=== PATIENT | female | born 1955 | race Caucasian/White ===

== ENCOUNTER → 2017-12-24 | Outpatient (CLI) | payer OTHER ==
[~2017-12-24] MED LIST: ACET-2043 PO; ALBUDR INH; ALP25 PO; ALP5 PO; AMOX-556 PO; ASP81 PO; ATOR10TA65 PO; ATOR20TA65 PO; AUG500 PO; CEF300 PO; CEFU250T67 PO; CEFU500T10 PO; CELE-1 PO; CEPH250C37 PO; CIT20 PO; CITA-156 PO; CYC10 PO; CYCL10TA29 PO; DAR100 PO; ENO40I SQ; EPIN0.3P15 IM; ESOM20CA31 PO; ESOM40CA42 PO; ESTR-1 PO; ESTR-41 PO; ESTR-43 PO; HYDR-2954 PO; HYDR12.558 PO; HYDR2TAB74 PO; IPRA15SP NS; LAMO100T52 PO; LAMO100T56 PO; LEV125 PO; LEV25 PO; LEVO125T77 PO; LEVO137T23 PO; LOR5 PO; LOSA-31 PO; LOSA-32 PO; LOSA50TA67 PO; MELA10TA2 PO; METF-1 PO; METF-421 PO; METXR500 PO; MIR PO; MOM PO; MULT-1335 PO; NITR-1 PO; NITR0.4T3 SL; ONDA4TAB97 PO; PANT40TA65 PO; PARO-242 PO; PARO-243 PO; PROM-110 PO; QUET25TA PO; QUET50TA PO; RANI-366 PO; STOOL SOFTNER; TRA50 PO; TRAM-420 PO; TRAM-627 PO; [UNRECOGNIZED DRUG - CODE] PO; tylenol pm PO
--- NOTE | 2017-12-28 08:32 | RADIOLOGY IMAGING REPORT ---
FACILITY: [facility] PATIENT NAME: LOW FAROOQ : [id number] MR: [id number] V: [id number] EXAM DATE: ORDERING PHYSICIAN: VASHTI PEREIRA TECHNOLOGIST: Janeth Coker PROCEDURE:BILATERAL DIGITAL SCREENING MAMMOGRAM WITH CAD ASSISTED INTERPRETATION & 3D TOMOSYNTHESIS COMPARISON:Prior mammograms 10/29/16, 10/02/15, 08/08/14, 10/18/12, 08/24/11. INDICATIONS:SCREENING FINDINGS: Moderately heterogeneous fibroglandular tissue is seen throughout the breasts. The parenchymal pattern has remained stable allowing for difference in mammographic technique & patient positioning. There is no evidence of malignant appearing mass, malignant appearing calcifications or other secondary sign of malignancy in either breast. DIAGNOSTIC CATEGORY 1--NEGATIVE. RECOMMENDATIONS: ROUTINE MAMMOGRAM AND CLINICAL EVALUATION. IMPRESSION: BIRADS 1: Negative. No significant abnormality is seen. Dictated by: Estephania Ramsey M.D. on 12/27/2017 at 15:23 Transcribed by: PATRICIA on 12/27/2017 at 15:40 Approved by: Estephania Ramsey M.D. on 12/28/2017 at 8:32 [facility]
== END ==
LOC: MAMO 01:11
PROVIDERS: ATTEND Internal Medicine
DX: Z12.31 Encounter for screening mammogram for malignant neoplasm of breast (principal)
CPT/HCPCS: 77063; 77067

== ENCOUNTER → 2018-01-03 | Outpatient (CLI) | payer OTHER ==
[~2018-01-03] MED LIST changes: +CHOL200074 PO; +DIPH0.5D12 IM; +NITR-105 PO
[2018-01-03 10:54] LABS: PLATELET COUNT, AUTOMATED 280 K/uL (150-450)
[2018-01-03 11:04] LABS: LDL CHOLESTEROL 52 mg/dl
== END ==
LOC: LAB 10:07
PROVIDERS: ATTEND Internal Medicine
DX: Z11.59 Encounter for screening for other viral diseases (principal); N39.0 Urinary tract infection, site not specified; E03.9 Hypothyroidism, unspecified; I10 Essential (primary) hypertension; E78.00 Pure hypercholesterolemia, unspecified; E11.9 Type 2 diabetes mellitus without complications; F43.10 Post-traumatic stress disorder, unspecified; F31.9 Bipolar disorder, unspecified; B96.89 Other specified bacterial agents as the cause of diseases classified elsewhere
CPT/HCPCS: 36415; 81001; 82040; 82043; 82247; 82306; 82310; 82374; 82435; 82465; 82565; 82947; 83036; 83718; 84075; 84132; 84155; 84295; 84443; 84450; 84460; 84478; 84520; 85025; 86803; 87077; 87088; 87186

== ENCOUNTER → 2018-03-02 | Outpatient (REF) | payer OTHER | LOC: ZZSENDIN 17:18 | PROVIDERS: ATTEND Urology | DX: N39.0 Urinary tract infection, site not specified (principal) | CPT/HCPCS: 87088 ==

== ENCOUNTER 2018-06-02 23:24 | Emergency (ER) | payer OTHER ==
[~2018-06-02 23:24] MED LIST changes: -METF-421 PO; +METF-452 PO
--- NOTE | 2018-06-02 23:29 | ER Report ---
History and Physical Time Seen By MD: 23:29 HPI/ROS CHIEF COMPLAINT: Hematuria HISTORY OF PRESENT ILLNESS: 63-year-old female presents with blood in her urine tonight. Patient status post hysterectomy. She denies vaginal bleeding. Patient just finished a course of Macrobid for urinary tract infection. She's been having a series of recurrent urinary tract infections. She is being followed by Dr. Porter urology. She notes burning with urination. She she notes pain radiating to her bilateral flanks. REVIEW OF SYSTEMS: Respiratory: No cough, no dyspnea. Cardiovascular: No chest pain, no palpitations. Gastrointestinal: As above Musculoskeletal: As above Allergies: Coded Allergies: adhesive tape (Verified Allergy, Intermediate, 09/26/16) tomato (Verified Allergy, Intermediate, 09/26/16) Sulfa (Sulfonamide Antibiotics) (Verified Allergy, Mild, HIVES, 09/26/16) ciprofloxacin (Verified Allergy, Mild, HIVES, 09/26/16) codeine (Verified Allergy, Mild, HIVES, 09/26/16) hydrocodone (Verified Allergy, Mild, 09/26/16) ciprofloxacin HCl (Verified Allergy, Unknown, 09/26/16) Uncoded Allergies: MSG (Allergy, Severe, 01/13/17) SULFA (Allergy, Unknown, GASTRIC BLEEDING, 07/03/14) NARCOTICS (Adverse Reaction, Unknown, 07/03/14) constipation Home Meds Active Scripts Cefuroxime Axetil (CEFUROXIME) 500 Mg Tablet, 500 MG PO BID for infection, #14 TAB Prov:HAYDE CASEY DO 06/03/18 Tramadol Hcl (TRAMADOL HCL) 50 Mg Tablet, 50 MG PO Q4-6H for pain, #90 TAB 1 Refill Prov:VASHTI PEREIRA MD 01/10/18 Lamotrigine (LAMOTRIGINE) 100 Mg Tablet, 2 TAB PO DAILY, #180 TAB 1 Refill Prov:VASHTI PEREIRA MD 01/07/18 Atorvastatin Calcium (ATORVASTATIN CALCIUM) 20 Mg Tablet, 1 TAB PO QDAY, #90 TAB 1 Refill Prov:VASHTI PEREIRA MD 01/07/18 Quetiapine Fumarate (QUETIAPINE FUMARATE) 50 Mg Tablet, 50 MG PO QHS, #90 TAB 1 Refill Prov:VASHTI PEREIRA MD 01/07/18 Metformin Hcl (METFORMIN HCL) 1,000 Mg Tablet, 1 TAB PO BID, #180 TAB 1 Refill Prov:VASHTI PEREIRA MD 01/07/18 Levothyroxine Sodium (LEVOTHYROXINE SODIUM) 0.125 Mg Tab, 0.125 MG PO QDAY, #90 TAB 1 Refill Prov:VASHTI PEREIRA MD 01/07/18 Pantoprazole Sodium (PANTOPRAZOLE SODIUM) 40 Mg Tablet.dr, 1 TAB PO QDAY, #90 TAB.SR 1 Refill Prov:VASHTI PEREIRA MD 01/07/18 Losartan/Hydrochlorothiazide (HYZAAR 50-12.5 TABLET) 1 Each Tablet, 1 EACH PO QDAY, #90 TAB 1 Refill Prov:VASHTI PEREIRA MD 01/07/18 Paroxetine Hcl (PAXIL) 20 Mg Tablet, 2 TAB PO QDAY, #180 TAB 1 Refill Prov:VASHTI PEREIRA MD 01/07/18 Ranitidine Hcl (ZANTAC) 150 Mg Tablet, 150 MG PO DAILY, #90 TAB 1 Refill Prov:VASHTI PEREIRA MD 01/07/18 Cyclobenzaprine Hcl (CYCLOBENZAPRINE HCL) 10 Mg Tablet, 10 MG PO TID PRN for pain, #90 TAB 1 Refill Prov:VASHTI PEREIRA MD 01/07/18 Epinephrine (EPIPEN 2-MARÍA ELENA) 0.3 Mg/0.3 Ml Pen.injctr, 0.3 MG IM DIRECTED, #1 SYR Prov:VASHTI PEREIRA MD 01/13/17 Reported Medications Cholecalciferol (Vitamin D3) (VITAMIN D-3) 2,000 Unit Capsule, 2000 UNIT PO QDAY, CAPSULE 01/04/18 Melatonin (MELATONIN) 10 Mg Tablet, 10 MG PO HS PRN for SLEEP 10/15/13 Aspirin (Childrens Chewable Aspirin) 81 Mg Chew, 81 MG PO QDAY, 0 Refills 01/13/11 Discontinued Scripts Nitrofurantoin Monohyd/M-Cryst (MACROBID 100 MG CAPSULE) 100 Mg Capsule, 100 MG PO Q12H, #14 CAPSULE Prov:VASHTI PEREIRA MD 01/05/18 Estrogen,Willow/Me-Testosterone (EEMT HS 0.625-1.25 MG TABLET) 1 Each Tablet, 1 EACH PO QDAY, #90 TAB Prov:VASHTI PEREIRA MD 11/16/17 Past Medical/Surgical History Past medical history significant for NIDDM and is currently on metformin 1000 mg twice a day. Last hemoglobin A1c was done in January/2017 and it was 7.5H and denies any numbness of the lower extremities but does complain of numbness in her toes in the right foot which has been present since she has an injury to the foot. Past medical history significant for hypertension and is currently on losartan/hydrochlorothiazide 50/12.5 one every day blood pressure appears to be under good control Past medical history significant for hyperlipidemia and is currently on atorvastatin 20 mg daily Past medical history significant for hypothyroidism she is status post partial thyroidectomy and recent labs have shown TSH of 2.13 Past medical history significant for bipolar disorder/post traumatic stress disorder and is currently on lamotrigine Seroquel and Paxil she denies any depression or anxiety or manic episodes her symptoms are fairly stable at this time Past medical history significant for GERD and is currently using Nexium in the morning and Zantac at night Hx Smoking: No Smoking Status: Never Smoker Hx Substance Use Disorder: No Hx Alcohol Use: Yes Constitutional Vital Sign - Last 24 Hours 06/02/18 06/02/18 06/02/18 06/02/18 23:24 23:33 23:33 23:39 Temp 97.9 Pulse ??? 116 104 Resp 18 B/P (MAP) 154/82 (106) 154/82 Pulse Ox 93 93 O2 Delivery Room Air 06/02/18 06/03/18 06/03/18 06/03/18 23:54 00:00 00:09 00:24 Pulse 100 98 ??? B/P (MAP) 130/76 (94) Pulse Ox 89 92 90 06/03/18 06/03/18 00:30 00:36 Pulse ??? B/P (MAP) 110/70 (83) Physical Exam General Appearance: The patient is alert, has no immediate need for airway protection and no current signs of toxicity. Vital signs stable, afebrile, pulse ox normal Eyes: Pupils equal and round no injection. Respiratory: Chest is non tender, lungs are clear to auscultation. Cardiac: regular rate and rhythm Gastrointestinal: Abdomen is soft and non tender, no masses, bowel sounds normal. Mild CVA tenderness bilaterally Musculoskeletal: Neck: Neck is supple and non tender. Extremities have full range of motion and are non tender. Skin: No rashes or lesions. DIFFERENTIAL DIAGNOSIS: After history and physical exam differential diagnosis was considered for back pain including but not limited to muscular pain, herniated disc, spine fracture, intra-abdominal causes and urinary tract infection. Additionally,abdominal pain including but not limited to appendicitis, cholecystitis, gastritis and urinary tract infection. Medical Decision Making Data Points Laboratory Hematology Test 06/02/18 23:30 Urine Color Yellow Urine Clarity Turbid Urine pH 5.0 pH (4.8-9.5) Urine Specific [place] 1.014 Urine Protein 100 mg/dL (NEGATIVE) Urine Glucose (UA) Negative mg/dL (NEGATIVE) Urine Ketones Negative mg/dL (NEGATIVE) Urine Blood Large (NEGATIVE) Urine Nitrite Positive (NEGATIVE) Urine Bilirubin Negative (NEGATIVE) Urine Urobilinogen Negative mg/dL (0.2-1.9) Urine Leukocyte Esterase Moderate (NEGATIVE) Urine RBC 211 /HPF (0-2/HPF) Urine WBC 3223 /HPF (0-5/HPF) Urine WBC Clumps Many /HPF Urine Squamous Epithelial Cells Many /LPF (</=FEW) Urine Transitional Epithelial Cells Moderate /LPF (NONE-FEW) Urine Bacteria Few /HPF (NONE-FEW) Urine Mucus None /HPF (NONE-FEW) Chemistry Test 06/02/18 23:30 Urine Color Yellow Urine Clarity Turbid Urine pH 5.0 pH (4.8-9.5) Urine Specific [place] 1.014 Urine Protein 100 mg/dL (NEGATIVE) Urine Glucose (UA) Negative mg/dL (NEGATIVE) Urine Ketones Negative mg/dL (NEGATIVE) Urine Blood Large (NEGATIVE) Urine Nitrite Positive (NEGATIVE) Urine Bilirubin Negative (NEGATIVE) Urine Urobilinogen Negative mg/dL (0.2-1.9) Urine Leukocyte Esterase Moderate (NEGATIVE) Urine RBC 211 /HPF (0-2/HPF) Urine WBC 3223 /HPF (0-5/HPF) Urine WBC Clumps Many /HPF Urine Squamous Epithelial Cells Many /LPF (</=FEW) Urine Transitional Epithelial Cells Moderate /LPF (NONE-FEW) Urine Bacteria Few /HPF (NONE-FEW) Urine Mucus None /HPF (NONE-FEW) Urinalysis Test 06/02/18 23:30 Urine Color Yellow Urine Clarity Turbid Urine pH 5.0 pH (4.8-9.5) Urine Specific [place] 1.014 Urine Protein 100 mg/dL (NEGATIVE) Urine Glucose (UA) Negative mg/dL (NEGATIVE) Urine Ketones Negative mg/dL (NEGATIVE) Urine Blood Large (NEGATIVE) Urine Nitrite Positive (NEGATIVE) Urine Bilirubin Negative (NEGATIVE) Urine Urobilinogen Negative mg/dL (0.2-1.9) Urine Leukocyte Esterase Moderate (NEGATIVE) Urine RBC 211 /HPF (0-2/HPF) Urine WBC 3223 /HPF (0-5/HPF) Urine WBC Clumps Many /HPF Urine Squamous Epithelial Cells Many /LPF (</=FEW) Urine Transitional Epithelial Cells Moderate /LPF (NONE-FEW) Urine Bacteria Few /HPF (NONE-FEW) Urine Mucus None /HPF (NONE-FEW) ED Course/Re-evaluation ED Course Patient was admitted to an examination room. H&P was done. The differential diagnosis was considered. On clinical examination. Patient has mild suprapubic tenderness. She has bilateral flank tenderness. Urinalysis shows gross infection. Suspect she failed Macrobid as outpatient treatment. A urinary cultures ordered. Patient be treated with cefuroxime 500 mg by mouth twice a day. Patient's advised to follow-up with Dr. Porter in for recheck of culture results in 2-3 days. Decision to Disposition Date: Jun 03, 2018 Decision to Disposition Time: 00:11 Depart Departure Latest Vital Signs Vital Signs Date Time Temp Pulse Resp B/P (MAP) Pulse Ox O2 Delivery O2 Flow Rate FiO2 06/03/18 00:36 ??? 06/03/18 00:30 110/70 (83) 06/03/18 00:24 90 06/02/18 23:33 97.9 18 Room Air Impression: Primary Impression: UTI (urinary tract infection) Condition: Improved Disposition: HOME OR SELF-CARE Referrals: VASHTI PEREIRA MD (PCP) RAMÓN PORTER MD New Scripts Cefuroxime Axetil (CEFUROXIME) 500 Mg Tablet 500 MG PO BID for infection, #14 TAB Prov: HAYDE CASEY 06/03/18 Patient Instructions: Urinary Tract Infection in Women (ED) Additional Instructions: Drink plenty of fluids Take Azo-Standard Follow-up with Dr. Porter as soon as possible Problem Qualifiers Primary Impression: UTI (urinary tract infection) Urinary tract infection type: acute cystitis Hematuria presence: with hematuria Qualified Codes: N30.01 - Acute cystitis with hematuria HAYDE CASEY DO Jun 02, 2018 23:29
[2018-06-03] MEDS ORDERED: CEFUROXIME AXETIL 250 MG TAB PO ONE (00:10)
[2018-06-03] MEDS ORDERED: HYDROmorphone 2 MG TAB TH 2 TAB/BOTTLE PO ONE (00:15)
[2018-06-03] MEDS ORDERED: CEFU500T10 PO (00:16)
[2018-06-03 00:30] VITALS: BP 110/70
== END 2018-06-03 00:34 | disposition home or self-care (01) ==
LOC: ER 23:59
DX: N30.01 Acute cystitis with hematuria (principal)
CPT/HCPCS: 81001; 87077; 87088; 87186; 99283; A9270

== ENCOUNTER 2018-06-04 09:54 | Emergency (ER) | payer MEDICARE, OTHER ==
[2018-06-04 10:08] VITALS: BP 134/75
[2018-06-04 10:33] LABS: PLATELET COUNT, AUTOMATED 337 K/uL (150-450)
--- NOTE | 2018-06-04 11:19 | ER Report ---
History and Physical Time Seen By MD: 10:45 Hx. of Stated Complaint: c/o vaginal bleeding and blood in urine increasing since with bilateral low back pain. HPI/ROS CHIEF COMPLAINT: vaginal bleeding HISTORY OF PRESENT ILLNESS: 63-year-old female is presenting with vaginal bleeding. She is status post hysterectomy 20 years ago. She was recently treated for UTI 2 days ago. She states that since this time she has had vaginal bleeding. Bleeding began yesterday and was slight use, now with slight increase in the amount of bleeding this morning. She denies cramping but does note that she has had lower abdominal pain and bilateral lower back pain since she was diagnosed with UTI. She denies new lightheadedness though states she has been intermittently lightheaded for months. She denies fever or chills, chest pain or shortness breath. She is had no recent significant weight change, no night sweats. REVIEW OF SYSTEMS: Constitutional: No fever, no chills. Eyes: No discharge. ENT: No sore throat. Cardiovascular: No chest pain, no palpitations. Respiratory: No cough, no shortness of breath. Gastrointestinal: above Genitourinary: vaginal bleeding as above Musculoskeletal: as above Skin: No rashes. Neurological: No headache. Remainder of the 14 system rev: Yes Allergies: Coded Allergies: adhesive tape (Verified Allergy, Intermediate, 09/26/16) tomato (Verified Allergy, Intermediate, 09/26/16) Sulfa (Sulfonamide Antibiotics) (Verified Allergy, Mild, HIVES, 09/26/16) ciprofloxacin (Verified Allergy, Mild, HIVES, 09/26/16) codeine (Verified Allergy, Mild, HIVES, 09/26/16) hydrocodone (Verified Allergy, Mild, 09/26/16) ciprofloxacin HCl (Verified Allergy, Unknown, 09/26/16) Uncoded Allergies: MSG (Allergy, Severe, 01/13/17) SULFA (Allergy, Unknown, GASTRIC BLEEDING, 07/03/14) NARCOTICS (Adverse Reaction, Unknown, 07/03/14) constipation Home Meds Active Scripts Cefuroxime Axetil (CEFUROXIME) 500 Mg Tablet, 500 MG PO BID for infection, #14 TAB Prov:HAYDE CASEY DO 06/03/18 Tramadol Hcl (TRAMADOL HCL) 50 Mg Tablet, 50 MG PO Q4-6H for pain, #90 TAB 1 Refill Prov:VASHTI PEREIRA MD 01/10/18 Lamotrigine (LAMOTRIGINE) 100 Mg Tablet, 2 TAB PO DAILY, #180 TAB 1 Refill Prov:VASHTI PEREIRA MD 01/07/18 Atorvastatin Calcium (ATORVASTATIN CALCIUM) 20 Mg Tablet, 1 TAB PO QDAY, #90 TAB 1 Refill Prov:VASHTI PEREIRA MD 01/07/18 Quetiapine Fumarate (QUETIAPINE FUMARATE) 50 Mg Tablet, 50 MG PO QHS, #90 TAB 1 Refill Prov:VASHTI PEREIRA MD 01/07/18 Metformin Hcl (METFORMIN HCL) 1,000 Mg Tablet, 1 TAB PO BID, #180 TAB 1 Refill Prov:VASHTI PEREIRA MD 01/07/18 Levothyroxine Sodium (LEVOTHYROXINE SODIUM) 0.125 Mg Tab, 0.125 MG PO QDAY, #90 TAB 1 Refill Prov:VASHTI PEREIRA MD 01/07/18 Pantoprazole Sodium (PANTOPRAZOLE SODIUM) 40 Mg Tablet.dr, 1 TAB PO QDAY, #90 TAB.SR 1 Refill Prov:VASHTI PEREIRA MD 01/07/18 Losartan/Hydrochlorothiazide (HYZAAR 50-12.5 TABLET) 1 Each Tablet, 1 EACH PO QDAY, #90 TAB 1 Refill Prov:VASHTI PEREIRA MD 01/07/18 Paroxetine Hcl (PAXIL) 20 Mg Tablet, 2 TAB PO QDAY, #180 TAB 1 Refill Prov:VASHTI PEREIRA MD 01/07/18 Ranitidine Hcl (ZANTAC) 150 Mg Tablet, 150 MG PO DAILY, #90 TAB 1 Refill Prov:VASHTI PEREIRA MD 01/07/18 Cyclobenzaprine Hcl (CYCLOBENZAPRINE HCL) 10 Mg Tablet, 10 MG PO TID PRN for pain, #90 TAB 1 Refill Prov:VASHTI PEREIRA MD 01/07/18 Epinephrine (EPIPEN 2-MARÍA ELENA) 0.3 Mg/0.3 Ml Pen.injctr, 0.3 MG IM DIRECTED, #1 SYR Prov:VASHTI PEREIRA MD 01/13/17 Reported Medications Cholecalciferol (Vitamin D3) (VITAMIN D-3) 2,000 Unit Capsule, 2000 UNIT PO QDAY, CAPSULE 01/04/18 Melatonin (MELATONIN) 10 Mg Tablet, 10 MG PO HS PRN for SLEEP 10/15/13 Aspirin (Childrens Chewable Aspirin) 81 Mg Chew, 81 MG PO QDAY, 0 Refills 01/13/11 Discontinued Scripts Nitrofurantoin Monohyd/M-Cryst (MACROBID 100 MG CAPSULE) 100 Mg Capsule, 100 MG PO Q12H, #14 CAPSULE Prov:VASHTI PEREIRA MD 01/05/18 Estrogen,Willow/Me-Testosterone (EEMT HS 0.625-1.25 MG TABLET) 1 Each Tablet, 1 EACH PO QDAY, #90 TAB Prov:VASHTI PEREIRA MD 11/16/17 Reviewed Nurses Notes: Yes Hx Smoking: No Smoking Status: Never Smoker Hx Substance Use Disorder: No Hx Alcohol Use: Yes (SELDOM) Constitutional Vital Sign - Last 24 Hours 06/04/18 06/04/18 06/04/18 06/04/18 09:54 10:05 10:08 10:09 Temp 97.9 Pulse ??? 100 103 Resp 16 B/P (MAP) 134/75 134/75 (94) Pulse Ox 93 91 O2 Delivery Room Air 06/04/18 06/04/18 06/04/18 06/04/18 10:24 10:39 10:54 11:09 Pulse 91 88 90 93 Pulse Ox 91 91 92 90 Physical Exam General Appearance: The patient is alert, has no immediate need for airway protection and no signs of toxicity. [ ] Eyes: Pupils equal and round no pallor or injection. ENT, Mouth: Mucous membranes are moist. Respiratory: There are no retractions, lungs are clear to auscultation. Cardiovascular: RRR, no m/r/g Gastrointestinal: pt has bilateral lower quadrant ttp, with suprapubic ttp and possible small mass - vaginal cuff noted to have blood present without e/o active bleeding Neurological: alert oriented, nad Skin: Warm and dry, no rashes. Musculoskeletal: Extremities are nontender, nonswollen and have full range of motion. DIFFERENTIAL DIAGNOSIS: After history and physical exam differential diagnosis was considered for abdominal pain including but not limited to appendicitis, cholecystitis, gastritis and urinary tract infection, diverticulitis, pyelonephritis, aaa, malignanc Medical Decision Making Data Points Result Diagram: 06/04/18 1015 06/04/18 1015 Laboratory Hematology Test 06/04/18 10:00 06/04/18 10:15 Urine Color Yellow Urine Clarity Slightly-cloudy Urine pH 5.0 pH (4.8-9.5) Urine Specific [place] 1.016 Urine Protein 30 mg/dL (NEGATIVE) Urine Glucose (UA) Negative mg/dL (NEGATIVE) Urine Ketones Negative mg/dL (NEGATIVE) Urine Blood Large (NEGATIVE) Urine Nitrite Negative (NEGATIVE) Urine Bilirubin Negative (NEGATIVE) Urine Urobilinogen Negative mg/dL (0.2-1.9) Urine Leukocyte Esterase Small (NEGATIVE) Urine RBC 336 /HPF (0-2/HPF) Urine WBC 115 /HPF (0-5/HPF) Urine Squamous Epithelial Cells Many /LPF (</=FEW) Urine Bacteria Negative /HPF (NONE-FEW) Urine Mucus Few /HPF (NONE-FEW) Red Blood Count 5.36 M/uL (4.17-5.56) Mean Corpuscular Volume 86.2 fL (80.0-96.0) Mean Corpuscular Hemoglobin 28.8 pg (26.0-33.0) Mean Corpuscular Hemoglobin Concent 33.4 g/dL (32.0-36.0) Red Cell Distribution Width 14.1 % (11.5-14.5) Mean Platelet Volume 6.8 fL (7.2-11.1) Neutrophils (%) (Auto) 68.9 % (39.4-72.5) Lymphocytes (%) (Auto) 16.4 % (17.6-49.6) Monocytes (%) (Auto) 6.6 % (4.1-12.4) Eosinophils (%) (Auto) 7.1 % (0.4-6.7) Basophils (%) (Auto) 1.0 % (0.3-1.4) Nucleated RBC Relative Count (auto) 0.0 /100WBC Neutrophils # (Auto) 6.3 K/uL (2.0-7.4) Lymphocytes # (Auto) 1.5 K/uL (1.3-3.6) Monocytes # (Auto) 0.6 K/uL (0.3-1.0) Eosinophils # (Auto) 0.7 K/uL (0.0-0.5) Basophils # (Auto) 0.1 K/uL (0.0-0.1) Nucleated RBC Absolute Count (auto) 0.00 K/uL Sodium Level 140 mmol/L (137-145) Potassium Level 4.1 mmol/L (3.5-5.0) Chloride Level 101 mmol/L (98-107) Carbon Dioxide Level 27 mmol/L (22-31) Blood Urea Nitrogen 20 mg/dl (7-18) Creatinine 1.00 mg/dl (0.52-1.04) Glomerular Filtration Rate Calc 55.6 Random Glucose 162 mg/dl (75-110) Calcium Level 10.0 mg/dl (8.4-10.2) Total Bilirubin 0.7 mg/dl (0.2-1.3) Aspartate Amino Transf (AST/SGOT) 24 U/L (0-35) Alanine Aminotransferase (ALT/SGPT) 29 U/L (0-56) Alkaline Phosphatase 85 U/L (0-126) Total Protein 7.5 g/dl (6.3-8.2) Albumin 4.5 g/dl (3.5-5.0) Chemistry Test 06/04/18 10:00 06/04/18 10:15 Urine Color Yellow Urine Clarity Slightly-cloudy Urine pH 5.0 pH (4.8-9.5) Urine Specific [place] 1.016 Urine Protein 30 mg/dL (NEGATIVE) Urine Glucose (UA) Negative mg/dL (NEGATIVE) Urine Ketones Negative mg/dL (NEGATIVE) Urine Blood Large (NEGATIVE) Urine Nitrite Negative (NEGATIVE) Urine Bilirubin Negative (NEGATIVE) Urine Urobilinogen Negative mg/dL (0.2-1.9) Urine Leukocyte Esterase Small (NEGATIVE) Urine RBC 336 /HPF (0-2/HPF) Urine WBC 115 /HPF (0-5/HPF) Urine Squamous Epithelial Cells Many /LPF (</=FEW) Urine Bacteria Negative /HPF (NONE-FEW) Urine Mucus Few /HPF (NONE-FEW) White Blood Count 9.2 k/uL (4.5-11.0) Red Blood Count 5.36 M/uL (4.17-5.56) Hemoglobin 15.4 g/dL (12.0-16.0) Hematocrit 46.2 % (34.0-47.0) Mean Corpuscular Volume 86.2 fL (80.0-96.0) Mean Corpuscular Hemoglobin 28.8 pg (26.0-33.0) Mean Corpuscular Hemoglobin Concent 33.4 g/dL (32.0-36.0) Red Cell Distribution Width 14.1 % (11.5-14.5) Platelet Count 337 K/uL (150-450) Mean Platelet Volume 6.8 fL (7.2-11.1) Neutrophils (%) (Auto) 68.9 % (39.4-72.5) Lymphocytes (%) (Auto) 16.4 % (17.6-49.6) Monocytes (%) (Auto) 6.6 % (4.1-12.4) Eosinophils (%) (Auto) 7.1 % (0.4-6.7) Basophils (%) (Auto) 1.0 % (0.3-1.4) Nucleated RBC Relative Count (auto) 0.0 /100WBC Neutrophils # (Auto) 6.3 K/uL (2.0-7.4) Lymphocytes # (Auto) 1.5 K/uL (1.3-3.6) Monocytes # (Auto) 0.6 K/uL (0.3-1.0) Eosinophils # (Auto) 0.7 K/uL (0.0-0.5) Basophils # (Auto) 0.1 K/uL (0.0-0.1) Nucleated RBC Absolute Count (auto) 0.00 K/uL Glomerular Filtration Rate Calc 55.6 Calcium Level 10.0 mg/dl (8.4-10.2) Total Bilirubin 0.7 mg/dl (0.2-1.3) Aspartate Amino Transf (AST/SGOT) 24 U/L (0-35) Alanine Aminotransferase (ALT/SGPT) 29 U/L (0-56) Alkaline Phosphatase 85 U/L (0-126) Total Protein 7.5 g/dl (6.3-8.2) Albumin 4.5 g/dl (3.5-5.0) Urinalysis Test 06/04/18 10:00 Urine Color Yellow Urine Clarity Slightly-cloudy Urine pH 5.0 pH (4.8-9.5) Urine Specific [place] 1.016 Urine Protein 30 mg/dL (NEGATIVE) Urine Glucose (UA) Negative mg/dL (NEGATIVE) Urine Ketones Negative mg/dL (NEGATIVE) Urine Blood Large (NEGATIVE) Urine Nitrite Negative (NEGATIVE) Urine Bilirubin Negative (NEGATIVE) Urine Urobilinogen Negative mg/dL (0.2-1.9) Urine Leukocyte Esterase Small (NEGATIVE) Urine RBC 336 /HPF (0-2/HPF) Urine WBC 115 /HPF (0-5/HPF) Urine Squamous Epithelial Cells Many /LPF (</=FEW) Urine Bacteria Negative /HPF (NONE-FEW) Urine Mucus Few /HPF (NONE-FEW) ED Course/Re-evaluation ED Course Pt remains hd stable; CT shows cystitis without other acute findings. I suspect that as bladder is adjacent to vagina, due to inflammation present on CT, bleeding is secondary to this. However, pt understands need to f/u, return to urologist and referral to electric deicer inspector for further eval. No e/o sepsis or worsening infection. Decision to Disposition Date: Jun 04, 2018 Decision to Disposition Time: 12:32 Depart Departure Latest Vital Signs Vital Signs Date Time Temp Pulse Resp B/P (MAP) Pulse Ox O2 Delivery O2 Flow Rate FiO2 06/04/18 11:09 93 90 06/04/18 10:08 134/75 (94) 06/04/18 10:05 97.9 16 Room Air Impression: Primary Impression: Vaginal bleeding Condition: Improved Disposition: HOME OR SELF-CARE Referrals: VASHTI PEREIRA MD (PCP) Additional Instructions: As we discussed, at this point I think the bleeding into the vagina is because of the inflammation from the bladder infection. However, it is important you follow up and have your primary doctor refer you to a electric deicer inspector for reevaluation. I also recommend you return to your urologist is currently scheduled. Given that your bladder scope was normal previously, I suspect that due to the adjacent vagina, your repeat infections are related to this. There are electric deicer inspector can reevaluate and determine if there is a surgical option. Please return immediately for worsening symptoms, fevers, vomiting, lightheadedness, not tolerate fluids or other concerns. ANASTACIO SHEIKH MD Jun 04, 2018 11:19
[2018-06-04] MEDS ORDERED: IOPAMIDOL 76% 75 ML INFUS BTL 75 ML ONE (11:32)
[2018-06-04] MEDS ORDERED: MORPHINE 4 MG/ML SDV IVP ONE (12:05)
--- NOTE | 2018-06-04 12:13 | RADIOLOGY IMAGING REPORT ---
FACILITY: [facility] PATIENT NAME: Inna Villarreal : 1955 MR: [id number] V: [id number] EXAM DATE: ORDERING PHYSICIAN: ANASTACIO SHEIKH TECHNOLOGIST: Location: [facility] [place] Patient: Inna Villarreal : 1955 Visit/Account:[id number] Date of Sevice: 06/04/2018 ABDOMEN/PELVIS WITH CONTRAST HISTORY: lower abdominal ttp, L>R TECHNIQUE: Following administration of IV contrast contiguous axial images acquired through the abdom en/pelvis. Coronal and sagittal reformatting also performed. One of the following dose optimization techniques was utilized in the performance of this exam: Automated exposure control; adjustment of t he mA and/or kV according to the patient's size; or use of an iterative reconstruction technique. S pecific details can be referenced in the facility's radiology CT exam operational policy. CONTRAST: 75 mL [id number] COMPARISON: CT abdomen pelvis 09/26/2016 FINDINGS: Visualized lung bases: Negative. Hepatobiliary: Negative. Spleen: Negative. Adrenals: Negative. Pancreas: Negative. Kidneys ureters or bladder: There are several small bilateral renal cysts, the largest located in the right anterior renal cortex measuring 1.7 cm in diameter, unchanged. A subcentimeter cyst in left re nal cortex slightly increased in size. Again seen is subtle mucosal enhancement of the bladder wall which is best appreciated on the coronal images. This again is suspicious for cystitis. No intraluminal masses. Genitalia: Remote hysterectomy. GI: Several sigmoid diverticula are seen. No evidence of inflammation. The appendix is retrocecal, w ell visualized, and normal. Vessels/spaces/nodes: There are several small aneurysms which are unchanged. There is a 2 cm rim kaitlynn cified splenic artery aneurysm as well as a 1 cm partially calcified right renal arcuate artery aneur ysm and a partially calcified 1 cm left renal arcuate artery aneurysm. Bones/soft tissues: Negative. Additional findings: None pertinent. IMPRESSION: Findings suspicious for cystitis. No other acute pathology. Mild sigmoid diverticulosis. 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 Additional benign findings per above. Report Dictated By: José Miguel Dan MD at 06/04/2018 11:58 AM Report E-Signed By: José Miguel Dan MD at 06/04/2018 12:09 PM WSN:[id number]
== END 2018-06-04 13:08 | disposition home or self-care (01) ==
LOC: ER 10:43
DX: N93.9 Abnormal uterine and vaginal bleeding, unspecified (principal)
CPT/HCPCS: 74177; 81001; 85025; 96374; 99284; J2270; Q9967; 82040; 82247; 82310; 82374; 82435; 82565; 82947; 84075; 84132; 84155; 84295; 84450; 84460; 84520

== ENCOUNTER → 2018-06-07 | Outpatient (CLI) | payer MEDICARE, OTHER ==
[~2018-06-07] MED LIST changes: +ESTR0.5T16 PO; +PHEN200T32 PO
== END ==
LOC: LAB 16:04
PROVIDERS: ATTEND Internal Medicine
DX: N39.0 Urinary tract infection, site not specified (principal)
CPT/HCPCS: 81001; 87088

== ENCOUNTER → 2018-08-30 | Outpatient (CLI) | payer MEDICARE, OTHER ==
[~2018-08-30] MED LIST changes: +CEPH500T7 PO; +ESTR42.53 TOP; +MECL25TA27 PO
[2018-08-30 16:36] LABS: PLATELET COUNT, AUTOMATED 332 K/uL (150-450)
[2018-08-30 17:43] LABS: LDL CHOLESTEROL 42 mg/dl
== END ==
LOC: LAB 15:59
PROVIDERS: ATTEND Internal Medicine
DX: E78.00 Pure hypercholesterolemia, unspecified (principal); E11.9 Type 2 diabetes mellitus without complications; E03.9 Hypothyroidism, unspecified; I10 Essential (primary) hypertension; R42 Dizziness and giddiness; N39.0 Urinary tract infection, site not specified; B96.89 Other specified bacterial agents as the cause of diseases classified elsewhere
CPT/HCPCS: 36415; 81001; 82040; 82247; 82306; 82310; 82374; 82435; 82465; 82565; 82947; 83036; 83718; 84075; 84132; 84155; 84295; 84439; 84443; 84450; 84460; 84478; 84520; 84550; 85025; 87077; 87088; 87186

== ENCOUNTER 2018-09-04 16:02 | Emergency (ER) | payer MEDICARE, OTHER ==
--- NOTE | 2018-09-04 16:51 | RADIOLOGY IMAGING REPORT ---
FACILITY: [facility] PATIENT NAME: Inna Villarreal : 1955 MR: [id number] V: [id number] EXAM DATE: ORDERING PHYSICIAN: LEE ANGEL TECHNOLOGIST: Location: [facility] Patient: Inna Villarreal : 1955 Visit/Account:[id number] Date of Sevice: 09/04/2018 ANKLE 3 VIEW MIN LEFT HISTORY: FALL ON ICE THREE-VIEW EXAMINATION OF THE LEFT ANKLE. FINDINGS: The distal tibia and fibular well-maintained with no fractures. Ankle mortise intact. Talar dome with out osteochondral defect. Talus, calcaneus and mid foot structures well-maintained. Plantar spurring and enthesopathy changes noted from the posterior calcaneus. No joint effusion. IMPRESSION: 1 negative left ankle for acute bony pathology Report Dictated By: Jarret Munoz MD at 09/04/2018 4:45 PM Report E-Signed By: Jarret Munoz MD at 09/04/2018 4:47 PM WSN:[id number]
--- NOTE | 2018-09-04 17:05 | ER Report ---
History and Physical Time Seen By MD: 17:05 Hx. of Stated Complaint: FALL ON ICE - LEFT FOOT AND ANKLE PAIN HPI/ROS CHIEF COMPLAINT: Left ankle injury HISTORY OF PRESENT ILLNESS: This is a 63-year-old female who presents to the emergency department for a left ankle injury. Patient states that about 2 hours prior to arrival, she slipped on some ice and her left foot rolled inward causing severe pain to the medial malleolus and arch of the foot. Patient states she is unable to bear weight. Denies numbness or tingling. No obvious deformities. No chest pain or shortness of breath. Patient denies falling down and hitting her head. No C-spine tenderness. REVIEW OF SYSTEMS: Respiratory: No cough, no dyspnea. Cardiovascular: No chest pain, no palpitations. Gastrointestinal: No vomiting, no abdominal pain. Musculoskeletal: As above. Allergies: Coded Allergies: adhesive tape (Verified Allergy, Intermediate, 09/04/18) tomato (Verified Allergy, Intermediate, 09/04/18) Sulfa (Sulfonamide Antibiotics) (Verified Allergy, Mild, HIVES, 09/04/18) ciprofloxacin (Verified Allergy, Mild, HIVES, 09/04/18) codeine (Verified Allergy, Mild, HIVES, 09/04/18) hydrocodone (Verified Allergy, Mild, 09/04/18) Uncoded Allergies: MSG (Allergy, Severe, 01/13/17) NARCOTICS (Adverse Reaction, Unknown, 07/03/14) constipation Home Meds Active Scripts Cephalexin 500 Mg Tab (KEFLEX 500 MG TAB) 500 Mg Tablet, 500 MG PO BID, #10 TAB Patient to take 500mg twice a day for 5 days Prov:VASHTI PEREIRA MD 09/02/18 Paroxetine Hcl (PAXIL) 20 Mg Tablet, 2 TAB PO QDAY, #180 TAB 1 Refill Prov:VASHTI PEREIRA MD 08/31/18 Atorvastatin Calcium (ATORVASTATIN CALCIUM) 20 Mg Tablet, 1 TAB PO QDAY, #90 TAB 1 Refill Prov:VASHTI PEREIRA MD 08/31/18 Metformin Hcl (METFORMIN HCL) 1,000 Mg Tablet, 1 TAB PO BID, #180 TAB 1 Refill Prov:VASHTI PEREIRA MD 08/31/18 Pantoprazole Sodium (PANTOPRAZOLE SODIUM) 40 Mg Tablet.dr, 1 TAB PO QDAY, #90 TAB.SR 1 Refill Prov:VASHTI PEREIRA MD 08/31/18 Losartan/Hydrochlorothiazide (HYZAAR 50-12.5 TABLET) 1 Each Tablet, 1 EACH PO QDAY, #90 TAB 1 Refill Prov:VASHTI PEREIRA MD 08/31/18 Ranitidine Hcl (ZANTAC) 150 Mg Tablet, 150 MG PO DAILY, #90 TAB 1 Refill Prov:VASHTI PEREIRA MD 08/31/18 Lamotrigine (LAMOTRIGINE) 100 Mg Tablet, 2 TAB PO DAILY, #180 TAB 1 Refill Prov:VASHTI PEREIRA MD 08/31/18 Quetiapine Fumarate (QUETIAPINE FUMARATE) 50 Mg Tablet, 50 MG PO QHS, #90 TAB 1 Refill Prov:VASHTI PEREIRA MD 08/31/18 Cyclobenzaprine Hcl (CYCLOBENZAPRINE HCL) 10 Mg Tablet, 10 MG PO TID PRN for pain, #90 TAB 1 Refill Prov:VASHTI PEREIRA MD 08/31/18 Meclizine Hcl (MECLIZINE HCL) 25 Mg Tab.chew, 25 MG PO BID PRN for dizziness, #30 TAB.CHEW Prov:VASHTI PEREIRA MD 08/30/18 Estradiol (ESTRADIOL) 0.5 Mg Tablet, 0.5 MG PO DAILY, #30 TAB 11 Refills Prov:SANTA CARDENAS DO 06/08/18 Phenazopyridine Hcl (PHENAZOPYRIDINE HCL) 200 Mg Tablet, 200 MG PO TID PRN for pain, #20 TAB Prov:VASHTI PEREIRA MD 06/07/18 Tramadol Hcl (TRAMADOL HCL) 50 Mg Tablet, 50 MG PO BID for pain, #90 TAB 1 Refill Prov:VASHTI PEREIRA MD 06/07/18 Epinephrine (EPIPEN 2-MARÍA ELENA) 0.3 Mg/0.3 Ml Pen.injctr, 0.3 MG IM DIRECTED, #1 SYR Prov:VASHTI PEREIRA MD 01/13/17 Reported Medications Levothyroxine Sodium (SYNTHROID) 137 Mcg Tablet, 137 MCG PO QDAY 09/04/18 Cholecalciferol (Vitamin D3) (VITAMIN D-3) 2,000 Unit Capsule, 2000 UNIT PO BID, CAPSULE 01/04/18 Melatonin (MELATONIN) 10 Mg Tablet, 10 MG PO HS PRN for SLEEP 10/15/13 Aspirin (Childrens Chewable Aspirin) 81 Mg Chew, 81 MG PO QDAY, 0 Refills 01/13/11 Discontinued Scripts Levothyroxine Sodium (LEVOTHYROXINE SODIUM) 0.125 Mg Tab, 0.125 MG PO QDAY, #90 TAB 1 Refill Prov:VASHTI PEREIRA MD 08/31/18 Estradiol (Estradiol) 0.01 % Cream.appl, 0.5-1 GM TOP THREE TIMES PER WEEK, #1 TUBE 0 Refills APPLY AT BEDTIME THREE TIMES PER WEEK TO AFFECTED AREA. TAPER OFF TOLERATED. 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 Reviewed Nurses Notes: Yes Hx Smoking: No Smoking Status: Never Smoker Hx Substance Use Disorder: No Hx Alcohol Use: Yes (SELDOM) Constitutional Vital Sign - Last 24 Hours 09/04/18 09/04/18 09/04/18 09/04/18 16:17 17:04 17:15 17:30 Temp 98.4 Pulse 91 83 85 Resp 16 B/P (MAP) 131/98 144/75 (98) 139/88 (105) Pulse Ox 94 92 91 O2 Delivery Room Air 09/04/18 09/04/18 09/04/18 18:00 18:15 18:30 Pulse 80 91 76 B/P (MAP) 129/83 (98) 146/93 (110) Pulse Ox 93 89 90 Physical Exam General Appearance: The patient is alert, has no immediate need for airway protection and no current signs of toxicity. Eyes: Pupils equal and round no injection. Respiratory: Chest is non tender, lungs are clear to auscultation. Cardiac: regular rate and rhythm. Gastrointestinal: Abdomen is soft and non tender, no masses, bowel sounds normal. Musculoskeletal: Neck: Neck is supple and non tender. Extremities decreased plantar flexion and extension, pain to bilateral left malleoli, with increased intensity to the medial malleoli, generalized pain to the dorsum of the foot. No bruising, no crepitus, no obvious deformities. Skin: No rashes or lesions. DIFFERENTIAL DIAGNOSIS: After history and physical exam differential diagnosis was considered for contusion, abrasion, subluxation, fracture. Medical Decision Making [place] [facility] [place] : 1955 Visit/Account:[id number] Date of Sevice: 09/04/2018 INDICATION: FALL ON ICE. DATE: 09/04/2018 4:58 PM. TECHNIQUE: FOOT 3 VIEW LEFT COMPARISON: None FINDINGS: Normal alignment without fracture or dislocation. [id number] degenerative findings at the first MTP joint. Prominent plantar calcaneal heel spur. Mild enthesopathy at the Achilles attachment at the calcaneus. IMPRESSION: No acute osseous abnormality. Report Dictated By: Trey Keller MD at 09/04/2018 4:58 PM Report E-Signed By: Trey Keller MD at 09/04/2018 5:10 PM WSN:[id number] [place] [facility] [place] : 1955 Visit/Account:[id number] Date of Sevice: 09/04/2018 ANKLE 3 VIEW MIN LEFT HISTORY: FALL ON ICE THREE-VIEW EXAMINATION OF THE LEFT ANKLE. FINDINGS: The distal tibia and fibular well-maintained with no fractures. Ankle mortise intact. Talar dome without osteochondral defect. Talus, calcaneus and mid foot structures well-maintained. Plantar spurring and enthesopathy changes noted from the posterior calcaneus. No joint effusion. IMPRESSION: 1 negative left ankle for acute bony pathology Report Dictated By: Jarret Munoz MD at 09/04/2018 4:45 PM Report E-Signed By: Jarret Munoz MD at 09/04/2018 4:47 PM WSN:[id number] INDICATION: slip, fall pain to medial ankle into foot. DATE: 09/04/2018 6:04 PM. TECHNIQUE: CT FOOT W/O LT. Noncontrast axial CT imaging was performed through the left foot with sagittal and coronal reformats. One of the following dose optimization techniques was utilized in the performance of this exam: Automated exposure control; adjustment of the mA and/or kV according to the patient's size; or use of an iterative reconstruction technique. Specific details can be referenced in the facility's radiology CT exam operational policy. COMPARISON: Radiographs September 04, 2018. FINDINGS: There is no evidence of acute fracture or dislocation. Tiny fragment at the anterior tibial lip on the lateral side could be a small intra-articular loose body. Limited evaluation of the flexor and extensor tendons by CT, but no apparent abnormality. Degenerative findings as noted on prior radiographs. IMPRESSION: No fracture identified. Report Dictated By: Trey Keller MD at 09/04/2018 6:04 PM Report E-Signed By: Trey Keller MD at 09/04/2018 6:17 PM WSN:[id number] ED Course/Re-evaluation ED Course The patient was admitted to room. A history and physical were obtained. Differential diagnoses were considered. An x-ray of the ankle and foot were negative for any acute osseous abnormalities. However due to the patient's severe pain I did a CT which was negative for any acute abnormalities. I reviewed the results with the patient and her . Patient was placed in a walking boot, given crutches and instructed to follow-up with her orthopedist is in [place]. She was instructed to keep the foot elevated, take the pain medication of her choice as she has pain medications at home. She had no other questions or concerns at this time, in agreement with this plan of care and discharged home. Decision to Disposition Date: Sep 04, 2018 Decision to Disposition Time: 18:49 Depart Departure Latest Vital Signs Vital Signs Date Time Temp Pulse Resp B/P (MAP) Pulse Ox O2 Delivery O2 Flow Rate FiO2 09/04/18 18:30 76 146/93 110 90 09/04/18 16:17 98.4 16 Room Air Impression: Primary Impression: Left ankle sprain Condition: Improved Disposition: HOME OR SELF-CARE Referrals: VASHTI PEREIRA MD (PCP) 1 Week Patient Instructions: Ankle Sprain (ED) Additional Instructions: No fractures identified on the CAT scan or x-rays. We are the boot for comfort. Use the crutches as needed. Keep the foot elevated when not walking or sitting. Take ibuprofen or Tylenol as needed for pain. Use your Ultram as needed for severe pain. Follow-up with your primary care provider or the orthopedist of your choice if no improvement in one week. Return to ER for any other concerns or worsening symptoms. Problem Qualifiers Primary Impression: Left ankle sprain Encounter type: initial encounter Involved ligament of ankle: unspecified ligament Qualified Codes: S93.402A - Sprain of unspecified ligament of left ankle, initial encounter LEE ANGEL PERISHABLE FREIGHT INSPECTOR-BC Sep 04, 2018 17:05
[2018-09-04] MEDS ORDERED: LEVO137T22 PO (17:14)
--- NOTE | 2018-09-04 17:14 | RADIOLOGY IMAGING REPORT ---
FACILITY: PATIENT NAME: Inna Villarreal : 1955 MR: [id number] V: [id number] EXAM DATE: ORDERING PHYSICIAN: LEE ANGEL TECHNOLOGIST: Location: [facility] Patient: Inna Villarreal : 1955 Visit/Account:[id number] Date of Sevice: 09/04/2018 INDICATION: FALL ON ICE. DATE: 09/04/2018 4:58 PM. TECHNIQUE: FOOT 3 VIEW LEFT COMPARISON: None FINDINGS: Normal alignment without fracture or dislocation. Taal-[id number] degenerative findings at the first MTP joint. Prominent plantar calcaneal heel spur. Mild enthesopathy at the Achilles attach ment at the calcaneus. IMPRESSION: No acute osseous abnormality. Report Dictated By: Trey Keller MD at 09/04/2018 4:58 PM Report E-Signed By: Trey Keller MD at 09/04/2018 5:10 PM WSN:[id number]
[2018-09-04] MEDS ORDERED: MORPHINE 4 MG/ML SDV IVP ONE ×2 (18:05)
--- NOTE | 2018-09-04 18:21 | RADIOLOGY IMAGING REPORT ---
FACILITY: [facility] [place] PATIENT NAME: Inna Villarreal : 1955 MR: [id number] V: [id number] EXAM DATE: ORDERING PHYSICIAN: LEE ANGEL TECHNOLOGIST: Location: [facility] Patient: Inna Villarreal : 1955 Visit/Account:[id number] Date of Sevice: 09/04/2018 INDICATION: slip, fall pain to medial ankle into foot. DATE: 09/04/2018 6:04 PM. TECHNIQUE: CT FOOT W/O LT. Noncontrast axial CT imaging was performed through the left foot with sagi ttal and coronal reformats. One of the following dose optimization techniques was utilized in the per formance of this exam: Automated exposure control; adjustment of the mA and/or kV according to the pa tient's size; or use of an iterative reconstruction technique. Specific details can be referenced i n the facility's radiology CT exam operational policy. COMPARISON: Radiographs September 04, 2018. FINDINGS: There is no evidence of acute fracture or dislocation. Tiny fragment at the anterior tibial lip on the lateral side could be a small intra-articular loose body. Limited evaluation of the flexo r and extensor tendons by CT, but no apparent abnormality. Degenerative findings as noted on prior ra diographs. IMPRESSION: No fracture identified. Report Dictated By: Trey Keller MD at 09/04/2018 6:04 PM Report E-Signed By: Trey Keller MD at 09/04/2018 6:17 PM WSN:[id number]
[2018-09-04 18:30] VITALS: BP 146/93
== END 2018-09-04 18:58 | disposition home or self-care (01) ==
LOC: ER 16:58
DX: S93.402A Sprain of unspecified ligament of left ankle, initial encounter (principal); W18.40XA Slipping, tripping and stumbling without falling, unspecified, initial encounter
CPT/HCPCS: 73610; 73630; 73700; 96374; 99284; J2270

== ENCOUNTER → 2018-10-09 | Outpatient (REF) | payer MEDICARE, OTHER ==
[~2018-10-09] MED LIST changes: +LEVO137T22 PO
== END ==
LOC: ZZSENDIN 10:06
PROVIDERS: ATTEND Urology
DX: N39.0 Urinary tract infection, site not specified (principal)
CPT/HCPCS: 81001; 87088

== ENCOUNTER → 2018-10-14 | Outpatient (REF) | payer MEDICARE, OTHER | LOC: ZZIMHLAB 11:49 | PROVIDERS: ATTEND Urology | DX: N39.0 Urinary tract infection, site not specified (principal) | CPT/HCPCS: 81001; 87088 ==

== ENCOUNTER 2018-11-30 11:49 | Emergency (ER) | payer MEDICARE, OTHER ==
[~2018-11-30 11:49] MED LIST changes: -DIPH0.5D12 IM; +DIPH0.5S2 IM; +DOXY-179 PO; +METF10002 PO; +TRIA15OI20 TP
[2018-11-30 11:56] VITALS: BP 162/93
--- NOTE | 2018-11-30 12:07 | ER Report ---
History and Physical Time Seen By MD: 12:04 Hx. of Stated Complaint: PATIENT FELL ABOUT 1 FOOT OFF HORSE TRAILER HITTING HEAD ON PAVEMENT. HAS SWELLING TO THE BACK LEFT OF THE HEAD. COMPLAINTS OF NECK PAIN, HEAD PAIN. NO LOC. HPI/ROS CHIEF COMPLAINT: Fall head trauma HISTORY OF PRESENT ILLNESS: Patient is a 63-year-old comes emergency Department today after having a mechanical fall she was unloading a horse trailer fell back wards struck the back of her head onto a cemented areas skittle large raised hematoma in the left posterior parietal area no loss of consciousness also complaint is some midline neck discomfort no back no chest was asymptomatic prior to fall patient otherwise no other complaints REVIEW OF SYSTEMS: Respiratory: No cough, no dyspnea. Cardiovascular: No chest pain, no palpitations. Gastrointestinal: No vomiting, no abdominal pain. Musculoskeletal: No back pain. Remainder of the 14 system rev: Yes Allergies: Coded Allergies: adhesive tape (Verified Allergy, Intermediate, 09/04/18) tomato (Verified Allergy, Intermediate, 09/04/18) Sulfa (Sulfonamide Antibiotics) (Verified Allergy, Mild, HIVES, 09/04/18) ciprofloxacin (Verified Allergy, Mild, HIVES, 09/04/18) codeine (Verified Allergy, Mild, HIVES, 09/04/18) hydrocodone (Verified Allergy, Mild, 09/04/18) Uncoded Allergies: MSG (Allergy, Severe, 01/13/17) NARCOTICS (Adverse Reaction, Unknown, 07/03/14) constipation Home Meds Active Scripts Triamcinolone Acetonide 0.1% Oint 15 Gm Tube (TRIAMCINOLONE ACETONIDE 0.1% 15 GM TUBE) 15 Gm Oint...g., 15 GM TP BID, #15 GM Prov:VASHTI PEREIRA MD 11/24/18 Losartan/Hydrochlorothiazide (HYZAAR 50-12.5 TABLET) 1 Each Tablet, 1 EACH PO QDAY, #90 TAB 3 Refills Prov:VASHTI PEREIRA MD 11/24/18 Metformin Hcl (METFORMIN HCL ER) 1,000 Mg Tab.er.24, 1 TAB PO BID, #180 TAB 3 Refills Prov:VASHTI PEREIRA MD 11/24/18 Estradiol (ESTRADIOL) 0.5 Mg Tablet, 0.5 MG PO DAILY, #30 TAB 11 Refills Prov:SANTA CARDENAS DO 10/18/18 Paroxetine Hcl (PAXIL) 20 Mg Tablet, 2 TAB PO QDAY, #180 TAB 1 Refill Prov:VASHTI PEREIRA MD 08/31/18 Atorvastatin Calcium (ATORVASTATIN CALCIUM) 20 Mg Tablet, 1 TAB PO QDAY, #90 TAB 1 Refill Prov:VASHTI PEREIRA MD 08/31/18 Pantoprazole Sodium (PANTOPRAZOLE SODIUM) 40 Mg Tablet.dr, 1 TAB PO QDAY, #90 TAB.SR 1 Refill Prov:VASHTI PEREIRA MD 08/31/18 Ranitidine Hcl (ZANTAC) 150 Mg Tablet, 150 MG PO DAILY, #90 TAB 1 Refill Prov:VASHTI PEREIRA MD 08/31/18 Lamotrigine (LAMOTRIGINE) 100 Mg Tablet, 2 TAB PO DAILY, #180 TAB 1 Refill Prov:VASHTI PEREIRA MD 08/31/18 Quetiapine Fumarate (QUETIAPINE FUMARATE) 50 Mg Tablet, 50 MG PO QHS, #90 TAB 1 Refill Prov:VASHTI PEREIRA MD 08/31/18 Tramadol Hcl (TRAMADOL HCL) 50 Mg Tablet, 50 MG PO BID for pain, #90 TAB 1 Refill Prov:VASHTI PEREIRA MD 08/31/18 Cyclobenzaprine Hcl (CYCLOBENZAPRINE HCL) 10 Mg Tablet, 10 MG PO TID PRN for pain, #90 TAB 1 Refill Prov:VASHTI PEREIRA MD 08/31/18 Meclizine Hcl (MECLIZINE HCL) 25 Mg Tab.chew, 25 MG PO BID PRN for dizziness, #30 TAB.CHEW Prov:VASHTI PREEIRA MD 08/30/18 Phenazopyridine Hcl (PHENAZOPYRIDINE HCL) 200 Mg Tablet, 200 MG PO TID PRN for pain, #20 TAB Prov:VASHTI PEREIRA MD 06/07/18 Epinephrine (EPIPEN 2-MARÍA ELENA) 0.3 Mg/0.3 Ml Pen.injctr, 0.3 MG IM DIRECTED, #1 SYR Prov:VASHTI PEREIRA MD 01/13/17 Reported Medications Levothyroxine Sodium (SYNTHROID) 137 Mcg Tablet, 137 MCG PO QDAY 09/04/18 Cholecalciferol (Vitamin D3) (VITAMIN D-3) 2,000 Unit Capsule, 2000 UNIT PO BID, CAPSULE 01/04/18 Melatonin (MELATONIN) 10 Mg Tablet, 10 MG PO HS PRN for SLEEP 10/15/13 Aspirin (Childrens Chewable Aspirin) 81 Mg Chew, 81 MG PO QDAY, 0 Refills 01/13/11 Discontinued Scripts Doxycycline Hyclate (DOXYCYCLINE HYCLATE) 100 Mg Tablet, 100 MG PO QDAY, #10 TAB Prov:VASHTI PEREIRA MD 11/24/18 Cephalexin 500 Mg Tab (KEFLEX 500 MG TAB) 500 Mg Tablet, 500 MG PO BID, #10 TAB Patient to take 500mg twice a day for 5 days Prov:VASHTI PEREIRA MD 09/02/18 Reviewed Nurses Notes: Yes Old Medical Records Reviewed: Yes Hx Smoking: No Smoking Status: Never Smoker Hx Substance Use Disorder: No Hx Alcohol Use: Yes (SELDOM) Constitutional Vital Sign - Last 24 Hours 11/30/18 11:56 Temp 99.3 Pulse 100 Resp 20 B/P (MAP) 162/93 Pulse Ox 93 O2 Delivery Room Air Physical Exam General Appearance: [The patient is alert, has no immediate need for airway protection and no current signs of toxicity.] [ ] Eyes: Pupils equal and round no injection. Respiratory: Chest is non tender, lungs are clear to auscultation. Cardiac: regular rate and rhythm [ ] Gastrointestinal: Abdomen is soft and non tender, no masses, bowel sounds normal. Musculoskeletal: Neck: Neck is supple and mild tenderness to palpation at the C4-C5 vertebral levels Extremities have full range of motion and are non tender. Skin: Large raised posterior hematoma abrasion to the right knee HEENT examination large raised posterior proximal hematoma for a 6 x 8 cm no lacerations noted DIFFERENTIAL DIAGNOSIS: After history and physical exam differential diagnosis was considered for intracranial bleed mass or lesion contusion cerebral contusion neck fracture Medical Decision Making ED Course/Re-evaluation ED Course ED course medical decision doing a 63-year-old female mechanical fall backwards out of a horse trailer striking her back for has had a large parietal hematoma CT of the head and C-spine shows no acute fractures dislocation subluxation shows no intercranial bleed mass or lesion patient be diagnosed with a contusion and follow-up with primary care Decision to Disposition Date: November 30, 2018 Decision to Disposition Time: 13:10 Depart Departure Latest Vital Signs Vital Signs Date Time Temp Pulse Resp B/P (MAP) Pulse Ox O2 Delivery O2 Flow Rate FiO2 11/30/18 11:56 99.3 100 20 162/93 93 Room Air Impression: Primary Impression: Scalp contusion Condition: Improved Disposition: HOME OR SELF-CARE Referrals: VASHTI PEREIRA MD (PCP) 5 Days Patient Instructions: Scalp Contusion in Adults (ED) CAMERON SOTO MD November 30, 2018 12:07
[2018-11-30] MEDS ORDERED: ONDANSETRON 4 MG ODT TABDP SL ONE (12:15)
[2018-11-30] MEDS ORDERED: DIPHTH/TETANUS/ACEL. PERTUSSIS IM ONLY ONE (12:15)
--- NOTE | 2018-11-30 13:04 | RADIOLOGY IMAGING REPORT ---
FACILITY: [facility] PATIENT NAME: Inna Villarreal : 1955 MR: [id number] V: [id number] EXAM DATE: ORDERING PHYSICIAN: CAMERON SOTO TECHNOLOGIST: Location: [facility] [place] Patient: Inna Villarreal : 1955 Visit/Account:[id number] Date of Sevice: 11/30/[address] scan without contrast COMPARISONS: None ADDITIONAL PERTINENT HISTORY: Fall, hitting top of head TECHNIQUE: Multiple axial images were obtained from the skull base to the vertex without IV contrast . One of the following dose optimization techniques was utilized in the performance of this exam: Aut omated exposure control; adjustment of the mA and/or kV according to the patient's size; or use of an iterative reconstruction technique. Specific details can be referenced in the facility's radiology CT exam operational policy. FINDINGS: Midline shift: Negative Ventricles: Negative Brain parenchyma: Negative Extra-axial spaces: Negative Intracranial vasculature: Cavernous internal carotid artery calcifications. Otherwise negative Osseous structures: Negative Paranasal sinuses and mastoid air cells: Moderate mucosal thickening involving the maxillary sinuses bilaterally. Surrounding soft tissues and orbits: Large left parietal scalp soft tissue hematoma. IMPRESSION: 1. Large left parietal scalp soft tissue hematoma. 2. Age related changes as described above. 3. No evidence of acute intracranial pathology. Report Dictated By: Dawit Shaffer MD at 11/30/2018 12:56 PM Report E-Signed By: Dawit Shaffer MD at 11/30/2018 12:59 PM WSN:[id number]
--- NOTE | 2018-11-30 13:07 | RADIOLOGY IMAGING REPORT ---
FACILITY: [facility] PATIENT NAME: Inna Villarreal : 1955 MR: [id number] V: [id number] EXAM DATE: ORDERING PHYSICIAN: CAMERON SOTO TECHNOLOGIST: Location: [facility] Patient: Inna Villarreal : 1955 Visit/Account:[id number] Date of Sevice: 11/30/2018 CT VERTEBRA CERVICAL (NON CON) COMPARISONS: None. ADDITIONAL PERTINENT HISTORY: Fall hitting top of head TECHNIQUE: Multiple axial images were obtained from the skull base through the upper thoracic spine with coronal and sagittal reformatted images obtained without IV contrast. One of the following dose optimization techniques was utilized in the performance of this exam: Automated exposure control; adj ustment of the mA and/or kV according to the patient's size; or use of an iterative reconstruction t echnique. Specific details can be referenced in the facility's radiology CT exam operational policy. FINDINGS. Vertebral body heights and alignment: Negative. Vertebral bodies: Anteriorly and posteriorly directed osteophytes at multiple levels. No bony fractur es. Disc spaces: Mild disc space narrowing within the mid to lower cervical spine. Cranial cervical junction: Negative. Cervical thoracic junction: Negative. Surrounding soft tissues: Negative. Lung apices: Negative. IMPRESSION: 1. Spondylitic change involving the cervical spine. 2. No acute appearing bony abnormalities. Report Dictated By: Dawit Shaffer MD at 11/30/2018 12:59 PM Report E-Signed By: Dawit Shaffer MD at 11/30/2018 1:03 PM WSN:[id number]
== END 2018-11-30 13:33 | disposition home or self-care (01) ==
LOC: ER 12:10
DX: S00.03XA Contusion of scalp, initial encounter (principal); W01.198A Fall on same level from slipping, tripping and stumbling with subsequent striking against other object, initial encounter
CPT/HCPCS: 70450; 72125; 90471; 90715; 99284; L0172; Q0162; S0119

== ENCOUNTER → 2019-02-28 | Outpatient (CLI) | payer MEDICARE, OTHER ==
[~2019-02-28] MED LIST changes: +DOCU-416 PO; +ERGO500037 PO; -RANI-366 PO; +RANI-54 PO
--- NOTE | 2019-02-28 15:44 | RADIOLOGY IMAGING REPORT ---
FACILITY: [facility] [place] PATIENT NAME: Inna Villarreal : 1955 MR: [id number] V: [id number] EXAM DATE: ORDERING PHYSICIAN: VASHTI PEREIRA TECHNOLOGIST: Location: [facility] Patient: Inna Villarreal : 1955 Visit/Account:[id number] Date of Sevice: 02/28/2019 KUB SINGLE VIEW ABDOMEN HISTORY: Diarrhea on and off for one year. Occasional abdominal pain. COMPARISON: 06/04/2018 and studies dating to 02/04/2007. Comparison studies include CT scans, abdomina l x-rays, and a barium enema. FINDINGS: 2 supine views were obtained. Distribution of bowel gas is normal with bowel in all four quadrants as well as centrally. No dilated bowel loops. No free air. There is mild to moderate stool in the ascending and proximal transverse c olon. There is mild stool in the rest of the colon. 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 There peripherally calc ified splenic artery aneurysms, stable. The larger measures 2.0 cm. Lung bases are clear. There is a slight rightward curvature of the thoracolumbar spine. IMPRESSION: 1. Mild to moderate stool burden without obstruction. 2. 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 3. Stable splenic artery aneurysms, the larger measuring 2.0 cm. Report Dictated By: Shawna Young at 02/28/2019 3:31 PM Report E-Signed By: Shawna Young at 02/28/2019 3:35 PM WSN:[id number]
[2019-02-28 15:49] LABS: PLATELET COUNT, AUTOMATED 313 K/uL (150-450)
[2019-02-28 16:03] LABS: LDL CHOLESTEROL 53 mg/dl
== END ==
LOC: LAB 14:45
PROVIDERS: ATTEND Internal Medicine
DX: I72.2 Aneurysm of renal artery (principal); I72.8 Aneurysm of other specified arteries; R19.5 Other fecal abnormalities; R19.7 Diarrhea, unspecified; E11.9 Type 2 diabetes mellitus without complications; E78.00 Pure hypercholesterolemia, unspecified; I10 Essential (primary) hypertension; E03.9 Hypothyroidism, unspecified; F43.10 Post-traumatic stress disorder, unspecified
CPT/HCPCS: 36415; 74018; 81001; 82040; 82247; 82306; 82310; 82374; 82435; 82465; 82565; 82947; 83036; 83718; 84075; 84132; 84155; 84295; 84439; 84443; 84450; 84460; 84478; 84520; 85025